=== PATIENT | female | born 1980 | race Caucasian/White ===

== ENCOUNTER 2018-04-21 12:21 | Day surgery (SDC) | payer BC, OTHER ==
[2018-04-21] MEDS ORDERED: PROPOFOL 40 ML (14:35)
[2018-04-21] MEDS ORDERED: FENTAnyl 50 MCG/ML VIAL (14:36)
== END 2018-04-21 15:08 | disposition home or self-care (01) ==
LOC: GIL 12:21
DX: K59.00 Constipation, unspecified (principal); R10.9 Unspecified abdominal pain; E03.9 Hypothyroidism, unspecified
CPT/HCPCS: 45378